=== PATIENT | female | born 1980 | race Caucasian/White ===

== ENCOUNTER 2020-06-21 08:43 | Observation (INO) ==
--- NOTE | 2020-06-21 09:43 | ERNOTE ---
Psychological HPI - Date Date of Service: 06/21/20 - General Chief Complaint: Psychiatric Problem Source: Reports: patient Exam Limitations: Reports: no limitations - Immun/Allergies/Home Medications Allergies/Adverse Reactions: Allergies prazosin Adverse Reaction (Intermediate, Verified 06/21/20 09:08) Increased Anxiety Depression zaleplon Adverse Reaction (Intermediate, Verified 06/21/20 09:08) Increased Anxiety Depression Home Medications: HOME MEDICATIONS sumatriptan succinate 6 mg/0.5 mL subcutaneous pen injector 6 mg SUB-Q PRN PRN #1 ml 12/24/17 [Last Taken Unknown] albuterol sulfate 90 mcg/actuation aerosol inhaler 2 inh IH QID PRN #18 g 04/12/18 [Last Taken Unknown] topiramate 100 mg tablet 100 mg PO HS #30 tab 02/27/20 [Last Taken Unknown] alprazolam 1 mg tablet 1 mg PO QID PRN #120 tab 04/12/20 [Last Taken Unknown] mirtazapine 30 mg tablet 30 mg PO HS #30 tab 06/15/20 [Last Taken Unknown] - History of Present Illness Narrative: Patient presents to the ED for psychiatric evaluation. She was brought in by police. She does not know her medications but hasn't been taking them for approx 4 weeks. She called 911 because she was seeing people with guns. Police said no one there. She relates people watching her and wiggling her doorknob. She denies CP or SOB. No overdose attempt. No clear SI or HI ideation but it is difficult to get her to focus on my questions. Time Seen by Provider: 06/21/20 09:08 Arrived by: Reports: police Onset/duration: Reports: continues in ED Intent: Denies: suicide Situational Problems: Reports: other - she is relating recent assault charges on bother her and her S.O. Associated Symptoms: Reports: hallucinating Prior Treament: Denies: recently seen Review of Systems - Narrative Narrative: unable to obtain ROS in entirety d/t psychiatric condition - Review of Systems Constitutional: Absent: fever Respiratory: Absent: shortness of breath Cardiology: Absent: chest pain Gastrointestinal/Abdominal: Absent: abdominal pain Musculoskeletal: Present: other - she relates fairly long standing hand and leg swelling that is unchanged, no acute swelling Neurological: Absent: weakness Psych: Present: See HPI Medical History (Last Reviewed 06/21/20 @ 09:41 by Cayden Bobo MD) PTSD (post-traumatic stress disorder) (Chronic) Onset Date: Unknown Major depression (Chronic) Onset Date: Unknown Insomnia due to mental disorder (Chronic) Onset Date: Unknown Generalized anxiety disorder (Chronic) Onset Date: Unknown Borderline personality disorder (Chronic) Onset Date: Unknown Anxiety Onset Date: Unknown Bipolar affective disorder Onset Date: Unknown Bipolar disorder Onset Date: Unknown Borderline personality disorder Onset Date: Unknown Depression Onset Date: Unknown GERD (gastroesophageal reflux disease) Onset Date: Unknown Hypertension Onset Date: Unknown Hypothyroidism Onset Date: Unknown Insomnia due to mental disorder Onset Date: Unknown Post traumatic stress disorder Onset Date: Unknown Surgical History: Surgical History (Last Reviewed 06/21/20 @ 09:41 by Cayden Bobo MD) Hx of tubal ligation Onset Date: Unknown [place] teeth extracted Onset Date: Unknown Family History: Family History (Last Reviewed 06/21/20 @ 09:41 by Cayden Bobo MD) Father Hypertension High cholesterol Mother Migraine Sister Migraine Grandmother Breast cancer Social History: (Last Reviewed 06/21/20 @ 09:41 by Cayden Bobo MD) Social History: Marital status: household members: family number of children: 3 current occupational status: employed 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 [employer] current occupational exposures/hazards: Yes Highest level of school completed/degree received: Associate degree: occupat Service: No Tobacco: Smoking Status: Current every day smoker Alcohol: alcohol intake: former Substance Use: substance use type: former substance user details: bath salts mushrooms Dietary Habits: caffeine: Yes Psychological Exam - Exam General Appearance: Present: alert, no apparent distress Head Exam: Present: normal inspection, no evidence of injury Neurological: 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: 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, depressed affect, flat Thoughts/Hallucinations: Present: obsessive, other - flat affect Behavior/Eye Contact/Speech: Present: avoids eye contact Eye Exam: Normal inspection: bilateral, PERRL: bilateral Ears, Nose, Throat: Present: normal ENT inspection Neck: Present: normal inspection Respiratory: Present: no respiratory distress, normal breath sounds, no accessory muscle use, lungs clear Cardiovascular/Chest: Present: regular rate, rhythm Gastrointestinal/Abdominal: Present: normal bowel sounds, nontender, soft Back Exam: Present: normal range of motion Extremity Exam: Present: normal range of motion, other - trace bilateral pretibial edema, no cellulitis or suggesiton of DVT. Skin Exam: Present: normal color, warm/dry Progress - Results and Orders Patient's Lab Results:: I have reviewed the patient's lab results. - Vital Signs Patient's Vital Signs:: I have reviewed the patient's vital signs. Vital Signs: Vital Signs 06/21/20 08:44 Temperature 37.0 C Pulse Rate 92 Respiratory Rate 18 Blood Pressure 148/110 H O2 Sat by Pulse Oximetry 99 - EKG EKG #1 EKG: NSR EKG read: Interp. by me EKG Comments: NSR rate 71. Incomplete RBBB, prolonged QT. Non-specific, No STEMI noted. - Progress/Reassessment Chief Complaint: Psychiatric Problem Progress Note-Subjective: 06/21/20 11:18 Patient has significant hypokalemia. This was replaced with Oral and IV potassium. [facility] saw the patient. At this point it is felt she would benefit from inpatient psych. She will need medical clearance prior to going to psych facility. I spoke with Dr Lindquist who will admit the patient with [facility] for psych placement. Patient understands and is agreeable. She is voluntary. Time Seen by Provider: 06/21/20 09:08 Departure Clinical Impression: Hallucinations, Paranoia, Non compliance w medication regimen, Hypokalemia - Departure Disposition: Still a patient Condition: Stable
[2020-06-21 09:59] LABS: Hematocrit 37.4 % (37.0-47.0); Hemoglobin 12.4 gm/dL (12.5-16.0); Mean Cell Volume 91.4 fl (78-100); Mean Corpuscular Hemoglobin 30.3 pg (27-31); Mean Corpuscular Hgb Conc 33.2 g/dl (32-36); Mean Platelet Volume 10.7 fl (8-12.5); Neutrophil % 73.8 % (42-75.0); Platelet Count 274 K/mm3 (150-450); Red Blood Count 4.09 M/mm3 (4.2-5.4); White Blood Count 6.8 K/mm3 (4.0-10.5)
[2020-06-21 10:20] LABS: ALT 32 U/L (19-67); AST 28 U/L (0-48); Albumin * 3.6 gm/dl (3.4-5.0); Alkaline Phosphatase * 80 U/L (50-170); BUN/Creatinine Ratio 6.4 (9.0-21.6); Bilirubin, Total 0.6 mg/dL (0.0-1.1); Blood Urea Nitrogen 5 mg/dL (3-23); Ca. Corrected For Albumin 8.9 mg/dL (8.4-10.2); Calcium * 8.9 mg/dL (7.9-10.9); Carbon Dioxide 27.1 mmol/L (24-32.6); Glucose * 95 mg/dL (70-110); TSH * 1.349 uIU/mL (0.358-3.74); Total Protein 6.3 gm/dL (6.2-8.2)
[2020-06-21 10:32] LABS: Anion Gap 12.3 mmol/L (6.8-13.8); Chloride 105 mmol/L (97-106); Salicylate 3.2 mg/dL (2.8-20.0); Sodium 142 mmol/L (132-142)
[2020-06-21] MEDS ORDERED: POTASSIUM CHLORIDE IN WATER 100 ML IV ONE (10:38)
[2020-06-21] MEDS ORDERED: POTASSIUM CHLORIDE 20 MEQ TABLET.SA PO ONE (10:38)
[2020-06-21 10:41] LABS: Potassium 2.4 mmol/L (3.4-4.6)
[2020-06-21 13:05] LABS: Cocaine Ur Negative (NEGATIVE); Urine Barbiturate Negative (NEGATIVE); Urine Opiates Negative (NEGATIVE); Urine PCP Negative (NEGATIVE)
[2020-06-21 13:11] LABS: Urine Benzodiazepines Positive (NEGATIVE); Urine THC Positive (NEGATIVE)
[2020-06-21 14:19] LABS: Anion Gap 8.7 mmol/L (6.8-13.8); BUN/Creatinine Ratio 7.9 (9.0-21.6); Calcium * 8.8 mg/dL (7.9-10.9); Carbon Dioxide 31.9 mmol/L (24-32.6); Estimated Creat Clear 100.4; Potassium 2.6 mmol/L (3.4-4.6)
--- NOTE | 2020-06-21 14:29 | HP ---
Chief Complaint - Chief Complaint Date of Service: 06/21/20 Time of Service: 14:15 Chief Complaint: paranoia History of Present Illness: History obtained from ERP and chart review. She does not answer my questions. Patient was brought in by police. She called them because she was seeing people with guns, but no one was present. She said people were watching her but no one was present. She also told nursing staff that a company confiscated her house and cell phone, but didn't want to tell the whole story because no one would believe her. She wants to hurt the tammy that's after her, but would not explain this. Work up in the ED found hypokalemia at 2.4, and no concerning findings otherwise. She has been calm. She told the ERP that she has not taken her psych meds in several weeks, but does not verbalize what they are. Urine was positive for amphetamine, benzos, and marijuana. test and COVID negative. She agrees to inpatient psych admission, but will need potassium replacement first. Medical History (Last Reviewed 06/21/20 @ 09:41 by Cayden Bobo MD) PTSD (post-traumatic stress disorder) (Chronic) Onset Date: Unknown Major depression (Chronic) Onset Date: Unknown Insomnia due to mental disorder (Chronic) Onset Date: Unknown Generalized anxiety disorder (Chronic) Onset Date: Unknown Borderline personality disorder (Chronic) Onset Date: Unknown Anxiety Onset Date: Unknown Bipolar affective disorder Onset Date: Unknown Bipolar disorder Onset Date: Unknown Borderline personality disorder Onset Date: Unknown Depression Onset Date: Unknown GERD (gastroesophageal reflux disease) Onset Date: Unknown Hypertension Onset Date: Unknown Hypothyroidism Onset Date: Unknown Insomnia due to mental disorder Onset Date: Unknown Post traumatic stress disorder Onset Date: Unknown Surgical History: Surgical History (Last Reviewed 06/21/20 @ 09:41 by Cayden Bobo MD) Hx of tubal ligation Onset Date: Unknown [place] teeth extracted Onset Date: Unknown Family History: Family History (Last Reviewed 06/21/20 @ 09:41 by Cayden Bobo MD) Father Hypertension High cholesterol Mother Migraine Sister Migraine Grandmother Breast cancer Social History: (Last Reviewed 06/21/20 @ 09:41 by Cayden Bobo MD) Social History: Marital status: household members: family number of children: 3 current occupational status: employed 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 current occupational exposures/hazards: Yes Highest level of school completed/degree received: Associate degree: occupat Service: No Tobacco: Smoking Status: Current every day smoker Alcohol: alcohol intake: former Substance Use: substance use type: former substance user details: bath salts mushrooms Dietary Habits: caffeine: Yes Review Of Systems (GEN) - Review of Systems Generalized/Overall Review: Present: No Symptoms Reported - unable to obtain Immunizations: IMMUNIZATION HX Immunizations Up to Date Yes History of Influenza Vaccine No Hx Pneumococcal Vaccination No Allergies/Adverse Reactions: Allergies Allergy/AdvReac Type Severity Reaction Status Date / Time prazosin AdvReac Intermediate Increased Verified 06/21/20 09:08 Anxiety Depression zaleplon AdvReac Intermediate Increased Verified 06/21/20 09:08 Anxiety Depression Home Medications: HOME MEDICATIONS sumatriptan succinate 6 mg/0.5 mL subcutaneous pen injector 6 mg SUB-Q PRN PRN #1 ml 12/24/17 [Last Taken Unknown] albuterol sulfate 90 mcg/actuation aerosol inhaler 2 inh IH QID PRN #18 g 04/12/18 [Last Taken Unknown] topiramate 100 mg tablet 100 mg PO HS #30 tab 02/27/20 [Last Taken Unknown] alprazolam 1 mg tablet 1 mg PO QID PRN #120 tab 04/12/20 [Last Taken Unknown] mirtazapine 30 mg tablet 30 mg PO HS #30 tab 06/15/20 [Last Taken Unknown] OXcarbazepine [Trileptal] 1 tab PO QDIPM 06/21/20 [Last Taken Unknown] Vortioxetine Hydrobromide [Trintellix] 1 tab QDIPM 06/21/20 [Last Taken Unknown] Exam - Exam Vital Signs: Vital Signs - Last Taken Temp 36.9 C 06/21/20 13:29 Pulse 87 06/21/20 13:29 Resp 22 H 06/21/20 13:29 BP 141/89 H 06/21/20 13:29 Pulse Ox 100 06/21/20 13:29 Comprehensive Narrative: 06/21/20 15:11 Does not open eyes for exam. Gave permission to do physical exam by nodding her head when asked, but did not answer questions. Constitutional: Present: No distress ENT Exam: Present: other - several erythematous papules of face Respiratory: Present: lungs clear, normal breath sounds Cardiovascular/Chest: Present: regular rate, rhythm Abdomen: Present: soft, nontender Extremity: Absent: lower extremity edema Eye contact: Present: avoids eye contact Diagnostic Studies: Abnormal Lab Results 06/21/20 06/21/20 06/21/20 Range/Units 09:50 09:50 12:43 RBC 4.09 L (4.2-5.4) M/mm3 Hgb 12.4 L (12.5-16.0) gm/dL Lymphocytes % 17.0 L (20-51) % Lymphocytes # 1.16 L (1.5-3.5) k/mm3 Sodium (132-142) mmol/L Plasma Sodium (130-142) mmol/L Potassium 2.4 L* (3.4-4.6) mmol/L BUN/Creatinine Ratio 6.4 L (9.0-21.6) Acetaminophen Less than 0.2 L (10.0-30.0) mcg/mL Urine Amphetamine Positive H (NEGATIVE) U Benzodiazepines Scrn Positive H (NEGATIVE) Urine Marijuana (THC) Positive H (NEGATIVE) 06/21/20 Range/Units 14:00 RBC (4.2-5.4) M/mm3 Hgb (12.5-16.0) gm/dL Lymphocytes % (20-51) % Lymphocytes # (1.5-3.5) k/mm3 Sodium 144 H (132-142) mmol/L Plasma Sodium 144 H (130-142) mmol/L Potassium 2.6 L (3.4-4.6) mmol/L BUN/Creatinine Ratio 7.9 L (9.0-21.6) Acetaminophen (10.0-30.0) mcg/mL Urine Amphetamine (NEGATIVE) U Benzodiazepines Scrn (NEGATIVE) Urine Marijuana (THC) (NEGATIVE) Laboratory Results WBC 6.8 K/mm3 (4.0-10.5) 06/21/20 09:50 RBC 4.09 M/mm3 (4.2-5.4) L 06/21/20 09:50 Hgb 12.4 gm/dL (12.5-16.0) L 06/21/20 09:50 Hct 37.4 % (37.0-47.0) 06/21/20 09:50 MCV 91.4 fl (78-100) 06/21/20 09:50 MCH 30.3 pg (27-31) 06/21/20 09:50 MCHC 33.2 g/dl (32-36) 06/21/20 09:50 RDW 12.0 % (11.5-14.0) 06/21/20 09:50 Plt Count 274 K/mm3 (150-450) 06/21/20 09:50 MPV 10.7 fl (8-12.5) 06/21/20 09:50 Immature Gran % (Auto) 0.30 % (0.001-0.429) 06/21/20 09:50 Immature Gran # (Auto) 0.02 K/mm3 (0.000-0.0310) 06/21/20 09:50 Neutrophils % 73.8 % (42-75.0) 06/21/20 09:50 Lymphocytes % 17.0 % (20-51) L 06/21/20 09:50 Monocytes % 7.0 % (0.0-9) 06/21/20 09:50 Eosinophils % 1.5 % (0.0-3.0) 06/21/20 09:50 Basophils % 0.4 % (0.0-1.0) 06/21/20 09:50 Nucleated RBC % 0.0 k/mm3 (0-1) 06/21/20 09:50 Neutrophils # 5.0 K/mm3 (1.3-6.0) 06/21/20 09:50 Lymphocytes # 1.16 k/mm3 (1.5-3.5) L 06/21/20 09:50 Monocytes # 0.5 k/mm3 (0.0-1.0) 06/21/20 09:50 Eosinophils # 0.1 k/mm3 (0.0-0.7) 06/21/20 09:50 Absolute Basophils 0.0 k/mm3 (0.0-0.1) 06/21/20 09:50 Sodium 144 mmol/L (132-142) H 06/21/20 14:00 Plasma Sodium 144 mmol/L (130-142) H 06/21/20 14:00 Potassium 2.6 mmol/L (3.4-4.6) L 06/21/20 14:00 Chloride 106 mmol/L (97-106) 06/21/20 14:00 Carbon Dioxide 31.9 mmol/L (24-32.6) 06/21/20 14:00 Anion Gap 8.7 mmol/L (6.8-13.8) 06/21/20 14:00 BUN 6 mg/dL (3-23) 06/21/20 14:00 Creatinine 0.76 mg/dL (0.4-1.4) 06/21/20 14:00 Est GFR (Non-Af Amer) 89 mL/min (60-130) 06/21/20 14:00 BUN/Creatinine Ratio 7.9 (9.0-21.6) L 06/21/20 14:00 Random Glucose 101 mg/dL (70-110) 06/21/20 14:00 Calcium 8.8 mg/dL (7.9-10.9) 06/21/20 14:00 Calcium Adj for Albumin 8.9 mg/dL (8.4-10.2) 06/21/20 09:50 Magnesium 2.2 mg/dL (1.2-2.8) 06/21/20 09:50 Total Bilirubin 0.6 mg/dL (0.0-1.1) 06/21/20 09:50 AST 28 U/L (0-48) 06/21/20 09:50 ALT 32 U/L (19-67) 06/21/20 09:50 Alkaline Phosphatase 80 U/L (50-170) 06/21/20 09:50 Total Protein 6.3 gm/dL (6.2-8.2) 06/21/20 09:50 Albumin 3.6 gm/dl (3.4-5.0) 06/21/20 09:50 TSH 1.349 uIU/mL (0.358-3.74) 06/21/20 09:50 Serum HCG, Qual Negative (NEGATIVE) 06/21/20 09:50 Salicylates 3.2 mg/dL (2.8-20.0) 06/21/20 09:50 Urine Opiates Screen Negative (NEGATIVE) 06/21/20 12:43 Acetaminophen Less than 0.2 mcg/mL (10.0-30.0) L 06/21/20 09:50 Barbiturate Screen Negative (NEGATIVE) 06/21/20 12:43 Ur Phencyclidine Scrn Negative (NEGATIVE) 06/21/20 12:43 Urine Amphetamine Positive (NEGATIVE) H 06/21/20 12:43 U Benzodiazepines Scrn Positive (NEGATIVE) H 06/21/20 12:43 Urine Cocaine Screen Negative (NEGATIVE) 06/21/20 12:43 Urine Marijuana (THC) Positive (NEGATIVE) H 06/21/20 12:43 Ethyl Alcohol Less than 3.0 mg/dL (0.0-10.0) 06/21/20 09:50 SARS-CoV-2 (PCR) Not detected (NotDetected) 06/21/20 11:17 Assessment/Plan - Narrative Narrative: Will replace potassium po and IV, but will need to give the IV very slowly because it's painful for her. Her potassium improved from 2.4 to 2.6 after 20 mg po and 10 mEq via IV. Recheck in the morning. She is unable to tell me if she has had any recent vomiting, nausea, reduced po intake, or any illness to try to find what may have led to her hypokalemia. Will need to verify her meds with her pharmacy and monitor for withdrawal. Will resume previously prescribed meds. When her potassium is greater than 3.0, she will be ok to DC to a psych inpatient facility. Should she become acutely agitated, will administer 10 mg IM Geodon. - Assessment/Plan (1) Hypokalemia Problem: Acute (2) Paranoia Problem: Acute (3) Non compliance w medication regimen Problem: Acute (4) PTSD (post-traumatic stress disorder) Problem: Chronic (5) Major depression Problem: Chronic Qualifiers: Major depression recurrence: recurrent Active/Remission status: currently active Major depression episode severity: moderate Qualified Code(s): F33.1 - Major depressive disorder, recurrent, moderate (6) Insomnia due to mental disorder Problem: Chronic (7) Generalized anxiety disorder Problem: Chronic (8) Borderline personality disorder Problem: Chronic
[2020-06-21] MEDS: POTASSIUM CHLORIDE IN WATER 100 ML IV SCH ×4 (15:20→19:06)
[2020-06-21] MEDS: POTASSIUM CHLORIDE 20 MEQ TABLET.SA PO SCH ×2 (17:42→20:18)
[2020-06-21] MEDS ORDERED: MIRTAZAPINE 15 MG TABLET PO SCH (21:00)
[2020-06-22 06:59] LABS: Albumin * 2.9 gm/dl (3.4-5.0); Anion Gap 10.4 mmol/L (6.8-13.8); BUN/Creatinine Ratio 5.1 (9.0-21.6); Bilirubin, Total 0.6 mg/dL (0.0-1.1); Ca. Corrected For Albumin 8.9 mg/dL (8.4-10.2); Calcium * 8.3 mg/dL (7.9-10.9); Carbon Dioxide 27.5 mmol/L (24-32.6); Potassium 2.9 mmol/L (3.4-4.6); Total Protein 5.4 gm/dL (6.2-8.2)
[2020-06-22] MEDS: POTASSIUM CHLORIDE 20 MEQ TABLET.SA PO SCH ×3 (07:42→17:23)
[2020-06-22] MEDS: POTASSIUM CHLORIDE IN WATER 100 ML IV SCH ×4 (08:34→12:24)
[2020-06-22] MEDS: ALPRAZolam 1 MG TABLET PO PRN ×2 (08:43→18:58)
[2020-06-22] MEDS: ACETAMINOPHEN 500 MG TABLET PO PRN ×2 (12:48→18:57)
[2020-06-22 13:14] LABS: Anion Gap 10.1 mmol/L (6.8-13.8); BUN/Creatinine Ratio 6.9 (9.0-21.6); Calcium * 8.3 mg/dL (7.9-10.9); Carbon Dioxide 25.5 mmol/L (24-32.6); Potassium 3.6 mmol/L (3.4-4.6)
--- NOTE | 2020-06-22 13:45 | PN ---
Progess Note - Interim Date: 06/22/20 Time: 13:44 Narrative: 06/22/20 13:44 Her potassium level has improved to 3.6. She is ok to DC to a [facility] facility.
--- NOTE | 2020-06-22 14:20 | DS ---
(1) Hypokalemia Problem: Resolved (2) Paranoia Problem: Chronic (3) Non compliance w medication regimen Problem: Chronic (4) PTSD (post-traumatic stress disorder) Problem: Chronic (5) Major depression Problem: Chronic Qualifiers: Major depression recurrence: recurrent Active/Remission status: currently active Major depression episode severity: moderate Qualified Code(s): F33.1 - Major depressive disorder, recurrent, moderate (6) Insomnia due to mental disorder Problem: Chronic (7) Generalized anxiety disorder Problem: Chronic (8) Borderline personality disorder Problem: Chronic Hospital Course: History initially obtained from ERP and chart review. Patient was brought in by police. She called them because she was seeing people with guns, but no one was present. She said people were watching her but no one was there. She also told nursing staff that a company confiscated her house and cell phone, but didn't want to tell the whole story because no one would believe her. She wants to hurt the tammy that's after her, but would not explain this. Work up in the ED found hypokalemia at 2.4, and no concerning findings otherwise. She has been calm. She told the ERP that she has not taken her psych meds in several weeks, but does not verbalize what they are. Urine was positive for amphetamine, b enzos, and marijuana. test and COVID negative. She agrees to inpatient psych admission. Resumed home meds. She was given two doses of IV 40 mEq KCl, and 2 doses of 40 mEq po K-Dur. Pota ssium improved to 3.6 on the afternoon of 06/22. She was more alert and conversational on 06/22, and complains of several weeks of hand and feet swelling. She is cleared to DC to an inpatient facility. Appreciate [facility] assistance in finding placement for her. She was DC'd and transferred to the [facility] behavioral health unit on the evening of 06/22/20, which was the day after admission. Procedures Performed: none Results and Findings: Lab Pending Results 06/21/20 09:50: WBC 6.8, RBC 4.09 L, Hgb 12.4 L, Hct 37.4, MCV 91.4, MCH 30.3, MCHC 33.2, RDW 12.0, Plt Count 274, MPV 10.7, Immature Gran % (Auto) 0.30, Immature Gran # (Auto) 0.02, Neutrophils % 73.8, Lymphocytes % 17.0 L, Monocytes % 7.0, Eosinophils % 1.5, Basophils % 0.4, Nucleated RBC % 0.0, Neutrophils # 5.0, Lymphocytes # 1.16 L, Monocytes # 0.5, Eosinophils # 0.1, Absolute Basophils 0.0 06/21/20 09:50: Sodium 142, Plasma Sodium 142, Potassium 2.4 L*, Chloride 105, Carbon Dioxide 27.1, Anion Gap 12.3, BUN 5, Creatinine 0.78, Est GFR (Non-Af Amer) 86, BUN/Creatinine Ratio 6.4 L, Random Glucose 95, Calcium 8.9, Calcium Adj for Albumin 8.9, Total Bilirubin 0.6, AST 28, ALT 32, Alkaline Phosphatase 80, Total Protein 6.3, Albumin 3.6, TSH 1.349, Salicylates 3.2, Acetaminophen Less than 0.2 L, Ethyl Alcohol Less than 3.0 06/21/20 09:50: Serum HCG, Qual Negative 06/21/20 09:50: Magnesium 2.2 06/21/20 11:17: SARS-CoV-2 (PCR) Not detected 06/21/20 12:43: Urine Opiates Screen Negative, Barbiturate Screen Negative, Ur Phencyclidine Scrn Negative, Urine Amphetamine Positive H, U Benzodiazepines Scrn Positive H, Urine Cocaine Screen Negative, Urine Marijuana (THC) Positive H 06/21/20 14:00: Sodium 144 H, Plasma Sodium 144 H, Potassium 2.6 L, Chloride 106, Carbon Dioxide 31.9, Anion Gap 8.7, BUN 6, Creatinine 0.76, Est GFR (Non-Af Amer) 89, BUN/Creatinine Ratio 7.9 L, Random Glucose 101, Calcium 8.8 06/22/20 06:20: Sodium 144 H, Plasma Sodium 144 H, Potassium 2.9 L, Chloride 109 H, Carbon Dioxide 27.5, Anion Gap 10.4, BUN 4, Creatinine 0.79, Est GFR (Non-Af Amer) 85, BUN/Creatinine Ratio 5.1 L, Random Glucose 92, Calcium 8.3, Calcium Adj for Albumin 8.9, Total Bilirubin 0.6, AST 21, ALT 26, Alkaline Phosphatase 69, Total Protein 5.4 L, Albumin 2.9 L 06/22/20 13:00: Sodium 140, Plasma Sodium 140, Potassium 3.6 D, Chloride 108 H, Carbon Dioxide 25.5, Anion Gap 10.1, BUN 5, Creatinine 0.72, Est GFR (Non-Af Amer) 94, BUN/Creatinine Ratio 6.9 L, Random Glucose 105, Calcium 8.3 Disposition: Psychiatric Hospital Condition: Stable Discharge Activity: Activity as tolerated Discharge Diet: General/regular food Complete Home Medications List: Complete Home Medication List: sumatriptan succinate 6 mg/0.5 mL subcutaneous pen injector 6 mg SUB-Q PRN PRN #1 ml 12/24/17 albuterol sulfate 90 mcg/actuation aerosol inhaler 2 inh IH QID PRN #18 g 04/12/18 topiramate 100 mg tablet 100 mg PO HS #30 tab 02/27/20 alprazolam 1 mg tablet 1 mg PO QID PRN #120 tab 04/12/20 mirtazapine 30 mg tablet 30 mg PO HS #30 tab 06/15/20 OXcarbazepine [Trileptal] 1 tab PO QDIPM 06/21/20 Vortioxetine Hydrobromide [Trintellix] 1 tab QDIPM 06/21/20
[2020-06-22] MEDS ORDERED: VORTIOXETINE HYDROBROMIDE 10 MG TABLET PO SCH (17:00)
[2020-06-22] MEDS ORDERED: OXcarbazepine 300 MG TABLET PO SCH (17:00)
--- NOTE | 2020-06-22 18:08 | PN ---
Subjective - Date and Time Seen Date: 06/22/20 Time: 08:00 Subjective Narrative: Patient is more alert and conversational than yesterday. Has been having hand, feet, and ankle swelling for several weeks. Otherwise, no new concerns and still agreeable to inpatient placement. Objective - Review of Systems Generalized/Overall Review: Denies: Fever Respiratory: Denies: Shortness of Breath Abdominal: Denies: Vomiting Genitourinary Symptoms: Reports: No Symptoms Reported Musculoskeletal Complaints: Reports: Other - hand and foot swelling - Vitals Vitals: Last Vital Signs Temp 36.0 C 06/22/20 14:33 Pulse 75 06/22/20 14:33 Resp 16 06/22/20 14:33 BP 121/66 06/22/20 14:33 Pulse Ox 99 06/22/20 14:33 - Abnormal Lab Findings Abnormal Lab Findings: Abnormal Lab Results 06/22/20 06/22/20 Range/Units 06:20 13:00 Sodium 144 H (132-142) mmol/L Plasma Sodium 144 H (130-142) mmol/L Potassium 2.9 L (3.4-4.6) mmol/L Chloride 109 H 108 H (97-106) mmol/L BUN/Creatinine Ratio 5.1 L 6.9 L (9.0-21.6) Total Protein 5.4 L (6.2-8.2) gm/dL Albumin 2.9 L (3.4-5.0) gm/dl - Exam Constitutional: Present: Alert, No distress Respiratory: Present: lungs clear, normal breath sounds Cardiovascular/Chest: Present: regular rate, rhythm Abdomen: Present: Normal bowel sounds, soft, nontender Extremity: Present: other - no appreciable edema of hands, feet, or ankles Eye contact: Present: cooperative Assessment/Plan Plan Narrative: She required continued potassium replacement today. This morning's K+ was 2.9. Will give additional 40 mEq IV, and continue 40 mEq bid with meals. She is more alert today, and denies recent illness. Her appetite was decreased due to upsetting circumstances at home. Will be able to DC to inpatient psych facility when potassium is greater than 3.0. - Problems/Diagnosis (1) Hypokalemia Problem: Acute (2) Paranoia Problem: Chronic (3) Non compliance w medication regimen Problem: Chronic (4) PTSD (post-traumatic stress disorder) Problem: Chronic (5) Major depression Problem: Chronic Qualifiers: Major depression recurrence: recurrent Active/Remission status: currently active Major depression episode severity: moderate Qualified Code(s): F33.1 - Major depressive disorder, recurrent, moderate (6) Insomnia due to mental disorder Problem: Chronic (7) Generalized anxiety disorder Problem: Chronic (8) Borderline personality disorder Problem: Chronic
[2020-06-22 19:28] VITALS: BP 162/94
== END 2020-06-22 20:12 ==
LOC: MS 08:43 → ER 08:43 → SCU 11:58
PROVIDERS: ADMIT Family Medicine; ATTEND Family Medicine